=== PATIENT | female | born 1955 | race Caucasian/White ===

== ENCOUNTER 2016-10-06 10:36 | Emergency (ER) | payer BC ==
--- NOTE | 2016-10-06 13:25 | ERNOTE ---
Upper Extremity HPI - Narrative Date of Service: 10/06/16 - General Extremities Pain Location: shoulder: right Time Seen by Provider: 10/06/16 11:12 Source: patient Exam Limitations: no limitations - Immun/Allergies/Home Medications Immunizations: IMMUNIZATION HX Immunizations Up to Date Yes History of Influenza Vaccine No Hx Pneumococcal Vaccination No Allergies/Adverse Reactions: Allergies Allergy/AdvReac Type Severity Reaction Status Date / Time No Known Drug Allergies Allergy Verified 10/06/16 11:08 Home Medications: HOME MEDICATIONS HYDROcodone/ACETAMINOPHEN [[place] 5-325] 1 each PO Q8H PRN #12 tablet 10/06/16 [ Last Taken Unknown] - History of Present Illness Narrative: Patient had a trip and fall just PLANNING OFFICIAL. She landed on her right shoulder and has right shoulder pain. No other injuries. She denies head injury, nock pain, CP or SOB. Pain right shoulder and proximal humerus. No focal weakness but she states her fingers tingle. Pain worse with movement and palpation. Has not seen anyone else for this. Occurred: just prior to arrival Location of Incident: home Method of Injury: Reports: fell Reason for Fall: Reports: tripped Loss of Consciousness: Reports: no loss of consciousness Modifying Factors - (Improves): Reports: rest Modifying Factors - (Worsens): Reports: movement Associated Symptoms: Reports: tingling Prior Treament: Denies: recently seen Review of Systems - Review of Systems Constitutional: Absent: fever Respiratory: Absent: shortness of breath Cardiology: Absent: chest pain Gastrointestinal/Abdominal: Absent: abdominal pain Genitourinary: Absent: frequency Musculoskeletal: Present: See HPI Skin: Present: other - no laceration - Patient's Past Medical History Patient History - Medical: Arthritis Patient History - Cardiac/Respiratory: Hyperlipidemia Patient History - Cancer: No Hx of Cancer Patient History - Surgical Procedures: Appendectomy, Cholecystectomy, Other Patient History - Other: None LMP (females 10-50): Menopausal - Social History Living Situations: home Abuse History: No History of abuse Psych History: No pertinent hx Smoking Status: Former smoker Alcohol Use: occasionally Drug Use: none - Immunizations Immunizations Up to Date: Yes Hx Pneumococcal Vaccination: No History of Influenza Vaccine: No Physical Exam - Physical Exam General Appearance: Present: alert, no apparent distress Eye Exam: Normal inspection: bilateral, PERRL: bilateral Ears, Nose, Throat: Present: normal ENT inspection Neck: Present: normal inspection, nontender. Absent: tender posterior midline Respiratory: Present: no respiratory distress, normal breath sounds, no accessory muscle use, lungs clear Cardiovascular/Chest: Present: regular rate, rhythm, normal peripheral pulses, other - strong radial pulse Gastrointestinal/Abdominal: Present: normal bowel sounds, nontender, soft Back Exam: Present: normal range of motion, no vertebral tenderness Extremity Exam: Present: other - TEnderness right shoulder and proximal humerus. No dislocation. No compartment syndrome. No other extremity tenderness noted. Neurological Exam: Present: alert, normal mood/affect, other - senssation intact to LT. No clear motor deficits but pain limits exam. No clear motor or sensory deficits. No vascular deficits. Skin Exam: Present: other - no laceration ED Progress - Vital Signs Patient's Vital Signs:: I have reviewed the patient's vital signs. Vital Signs: Vital Signs 10/06/16 10/06/16 10:51 12:10 Temperature 36.5 C Pulse Rate 68 95 Respiratory 16 12 Rate Blood Pressure 141/77 143/69 O2 Sat by Pulse 99 97 Oximetry - X-Ray X-Ray #1 X-Ray: humerus Interpretation: Reviewed by me X-ray Comments: I reviewed radiology report X-Ray #2 X-Ray: shoulder Interpretation: Reviewed by me X-ray Comments: I reviewed radiology report - Progress/Reassessment Chief Complaint: Shoulder Injury/Pain Progress Note-Subjective: 10/06/16 13:24 I discussed the case with Dr Mark, documentum consultant for ortho. He recommends sling and office f/u. Discussed with patient who is agreeable. i discussed warning signs and reasons to return as well as the need for close f/u. Departure Clinical Impression: Fracture of humerus greater tuberosity - Departure Disposition: Home self-care Condition: Stable Instructions: Humerus Fracture Treated With Immobilization Additional Instructions: Rest. Fluids. i spoke with Dr Mark, please call Saturday for an appointment for follow-up. Orthopedics has recommended a sling for now. Ice. Return here for increased pain, numbness, tingling, weakness or if your condition worsens or changes in any way. No driving with pain medications. Referrals: Mellisa Meier MD [Primary Care Provider] - Prescriptions: HYDROcodone/ACETAMINOPHEN [[place] 5-325] 1 each PO Q8H PRN #12 tablet PRN Reason: Pain
[2016-10-06 13:28] VITALS: BP 138/87
== END 2016-10-06 13:29 | disposition home or self-care (01) ==
LOC: ER 10:36
DX: S42.251A Displaced fracture of greater tuberosity of right humerus, initial encounter for closed fracture (principal); Z87.891 Personal history of nicotine dependence; W01.0XXA Fall on same level from slipping, tripping and stumbling without subsequent striking against object, initial encounter; Y92.009 Unspecified place in unspecified non-institutional (private) residence as the place of occurrence of the external cause

== ENCOUNTER 2016-11-25 12:59 | Emergency (ER) | payer BC ==
[2016-11-25] MEDS ORDERED: KETOROLAC TROMETHAMINE 60 MG/2 ML VIAL IM ONE ×2 (13:29→13:30)
--- NOTE | 2016-11-25 13:35 | ERNOTE ---
Upper Extremity HPI - Narrative Date of Service: 11/25/16 - General Extremities Pain Location: elbow: right, wrist: bilateral, hand: bilateral Time Seen by Provider: 11/25/16 13:23 Source: patient Exam Limitations: no limitations - Immun/Allergies/Home Medications Immunizations: IMMUNIZATION HX Immunizations Up to Date No: unknown History of Influenza Vaccine No Hx Pneumococcal Vaccination No Allergies/Adverse Reactions: Allergies Allergy/AdvReac Type Severity Reaction Status Date / Time No Known Drug Allergies Allergy Verified 10/06/16 11:08 Home Medications: HOME MEDICATIONS HYDROcodone/ACETAMINOPHEN [[place] 5-325] 1 each PO Q8H PRN #12 tablet 10/06/16 [ Last Taken Unknown] Atorvastatin Calcium [Lipitor] 20 mg PO DAILY 11/25/16 [Last Taken Unknown] Naproxen Sodium [Aleve] 220 mg PO HS 11/25/16 [Last Taken Unknown] Naproxen Sodium [Aleve] 440 mg PO QAM 11/25/16 [Last Taken Unknown] Naproxen [Naprosyn] 500 mg PO BID PRN #60 tab 11/25/16 [Last Taken Unknown] - History of Present Illness Occurred: yesterday Location of Incident: home Severity: mild Method of Injury: Reports: fell Reason for Fall: Reports: tripped Loss of Consciousness: Reports: no loss of consciousness Modifying Factors - (Improves): Reports: pain medication - hydrocodone Modifying Factors - (Worsens): Reports: movement Associated Symptoms: Reports: other - tingling distally Other Injuries: Reports: none. Denies: head Prior Treament: Reports: other - broken R humerus a few months ago Review of Systems - Review of Systems Constitutional: Present: no symptoms reported. Absent: recent illness, fever, chills, weakness, fatigue, malaise EYE: Present: no symptoms reported ENT: Present: no symptoms reported Respiratory: Present: no symptoms reported. Absent: shortness of breath, cough , wheezing Cardiology: Present: no symptoms reported. Absent: chest pain, palpitations, edema Genitourinary: Present: no symptoms reported Musculoskeletal: Present: joint pain - B hands, wrists and R elbow, joint swelling - B wrists and R elbow. Absent: back pain, neck pain Skin: Present: no symptoms reported Neurological: Present: tingling. Absent: headache, dizziness/light-headedness, numbness All Other Systems: All systems neg except as marked - Patient's Past Medical History Patient History - Medical: Arthritis, Kidney stone Patient History - Cardiac/Respiratory: Hyperlipidemia Patient History - Cancer: No Hx of Cancer Patient History - Surgical Procedures: Appendectomy, Cholecystectomy Patient History - Other: None - Family History Mother Family History - Medical: No pertinent hx, Arthritis Family History - Cardiac/Respiratory: No pertinent hx Family History - Cancer: No pertinent family hx Father Family History - Medical: , History Unknown Family History - Cardiac/Respiratory: Hyperlipidemia Family History - Cancer: Brain - Social History Living Situations: spouse Abuse History: No History of abuse Psych History: No pertinent hx Smoking Status: Former smoker Have you smoked in the past 12 months: No Do you dip or chew tobacco: No Patient requests Smoking Cessation Consult: No Initiate information on Smoking Cessation: No Alcohol Use: occasionally Drug Use: none - Immunizations Immunizations Up to Date: No - unknown Hx Pneumococcal Vaccination: No History of Influenza Vaccine: No Physical Exam - Physical Exam General Appearance: Present: wd/wn, alert, no apparent distress Eye Exam: Normal inspection: bilateral, PERRL: bilateral, EOMI: bilateral Neck: Present: normal inspection Respiratory: Present: no respiratory distress, normal breath sounds, no accessory muscle use, chest nontender, lungs clear Cardiovascular/Chest: Present: regular rate, rhythm, no murmur, normal peripheral pulses Back Exam: Present: normal inspection, normal range of motion, no vertebral tenderness Extremity Exam: Present: normal range of motion, bony tenderness - Distal and prox R radial B thumbs distal L radius Neurological Exam: Present: alert, oriented, normal mood/affect, other - burning and tingling with palpation of hands good cap refill and pulses Skin Exam: Present: normal color, warm/dry, other - superficial scratches to B palms no foreign body noted.. Absent: pallor, skin rash ED Progress - Date and Time Seen: Date and Time: 11/25/16 14:11 Pt. with minimal injury and good prognosis so will start on NSAIDs and have follow up with primary provider. - Vital Signs Patient's Vital Signs:: I have reviewed the patient's vital signs. Vital Signs: Vital Signs 11/25/16 13:02 Temperature 37.5 C Pulse Rate 69 Respiratory 18 Rate Blood Pressure 136/73 O2 Sat by Pulse 97 Oximetry - X-Ray X-Ray #1 X-Ray: wrist Interpretation: Interp. by me X-ray Comments: B wrists without obvious ossious abnormalities X-Ray #2 X-Ray: hand - B Interpretation: Interp. by me X-ray Comments: B hands without obvious ossious abnormalities X-Ray #3 X-Ray: elbow Interpretation: Interp. by me X-ray Comments: no obvious ossious abnormality noted - Progress/Reassessment Chief Complaint: Upper Extremity Injury/Problem Progress:: Improved Departure Clinical Impression: Left wrist sprain Qualifiers: Encounter type: initial encounter Qualified Code(s): S63.502A - Unspecified sprain of left wrist, initial encounter Sprain of wrist, right Qualifiers: Encounter type: initial encounter Qualified Code(s): S63.501A - Unspecified sprain of right wrist, initial encounter Radiohumeral (joint) sprain of right elbow, initial encounter Qualifiers: Encounter type: initial encounter Qualified Code(s): S53.411A - Radiohumeral ( joint) sprain of right elbow, initial encounter - Departure Disposition: Home self-care Condition: Good Instructions: Muscle Strain, [id number] Additional Instructions: Please follow up with primary provider in 2-3 days to discuss further imaging possibly needed. Referrals: Mellisa Meier MD [Primary Care Provider] - Prescriptions: Naproxen [Naprosyn] 500 mg PO BID PRN #60 tab PRN Reason: Pain
[2016-11-25 14:23] VITALS: BP 138/72
== END 2016-11-25 14:24 | disposition home or self-care (01) ==
LOC: ER 12:59
DX: S63.502A Unspecified sprain of left wrist, initial encounter (principal); S63.501A Unspecified sprain of right wrist, initial encounter; S53.411A Radiohumeral (joint) sprain of right elbow, initial encounter; E78.5 Hyperlipidemia, unspecified; W01.0XXA Fall on same level from slipping, tripping and stumbling without subsequent striking against object, initial encounter; Y93.9 Activity, unspecified; Y92.009 Unspecified place in unspecified non-institutional (private) residence as the place of occurrence of the external cause

== ENCOUNTER 2016-12-25 07:45 | Inpatient (IN) | payer BC ==
[~2016-12-25 07:45] MED LIST: MORPHINE SULFATE 15 MG TABLET.SA PO PRN; ROPIVACAINE HCL/PF 100 MG, EPINEPHrine 0.2 MG, KETOROLAC TROMETHAMINE 30 MG in NORMAL S... IJ PRN; TRANEXAMIC ACID 1,000 MG in NORMAL SALINE 100 ML IV PRN; ceFAZolin SODIUM 1 GM VIAL IV PRN
[2016-12-25] MEDS: RINGER'S SOLUTION,LACTATED 1,000 ML IV PRN ×2 (08:59→10:15)
[2016-12-25] MEDS ORDERED: RINGER'S SOLUTION,LACTATED 1,000 ML IV ONE ×2 (11:15→13:15)
[2016-12-25] MEDS ORDERED: ONDANSETRON HCL/PF 2 MG/ML VIAL IV PRN (13:12)
[2016-12-25] MEDS ORDERED: MAGNESIUM HYDROXIDE 30 ML UDC PO PRN (13:12)
[2016-12-25] MEDS ORDERED: PROMETHAZINE HCL 5 MG in DEXTROSE 5 % IN WATER 50 ML IV PRN ×2 (13:12)
[2016-12-25] MEDS ORDERED: ACETAMINOPHEN 500 MG TABLET PO PRN (13:12)
[2016-12-25] MEDS ORDERED: diphenhydrAMINE HCL 50 MG/ML VIAL IV PRN (13:12)
[2016-12-25] MEDS ORDERED: oxyCODONE HCL/ACETAMINOPHEN 1 TAB TABLET PO PRN (13:12)
[2016-12-25] MEDS ORDERED: MAG HYDROX/ALUMINUM HYD/SIMETH 30 ML UDC PO PRN (13:12)
[2016-12-25] MEDS ORDERED: HYDROmorphone HCL 1 MG/ML DISP.SYRIN IV PRN (13:12)
--- NOTE | 2016-12-25 13:25 | OR ---
Operative Report - Dictated Report Narrative: Date: 12/25/2016 Preoperative diagnosis: Right Knee degenerative joint disease. Postoperative diagnosis: Right Knee degenerative joint disease. Procedure: Right Total knee arthroplasty. Surgeon: Aftab Vivas M.D. Contact Manager: Nanette Linares PA-C, Leoncio Lyn PA-C Anesthesia: Spinal with regional block and local periarticular joint injection. Complications: None Specimens: Bone for disposal. Estimated blood loss: Minimal. Tourniquet time: 75 Minutes at 300 millimeters of mercury. Retained implants: Depuy Attune size 6 standard lugged cemented posterior stabilized femoral component. Size 4 fixed-bearing cemented tibial platform. 6 by 5 millimeter posterior stabilized cross-linked tibial insert. 35 millimeter medialized patella button. Indications: Jeni Is a 61-year-old healthy female. This patient was followed in my clinic for period of time with significant complaints of right knee pain consistent with arthritic changes. They had failed conservative measures including but not limited to activity modification, passage of time, medications , and other conservative measures. Patient wished to proceed with surgical treatment. The risks, benefits, and alternatives were discussed in clinic. The risks of , blood clots, bleeding, infection, nerve/tendon blood vessel / injury, malposition of components, intraoperative fracture, postoperative limited range of motion, persistent pain, failure of components, and need for additional procedures. Patient wished to proceed consent was obtained after answering all questions. Procedure: After marking the correct extremity on the floor, the patient was taken to the operating room. A timeout was performed. IV antibiotics consisting of 2 g of Ancef were administered prior to the procedure. A regional followed by spinal anesthetic was induced by anesthesia. on the operative table with all bony prominences well-padded. Teran catheter was placed and a bump was placed under the operative side buttock. SCDs and NANETTE hose were utilized on the nonoperative leg. A well-padded tourniquet was applied to the operative thigh. The operative leg was then pre-scrubbed with alcohol prepped and draped in a standard sterile fashion. After exsanguinating the extremity with an Esmarch bandage, the tourniquet was inflated. After marking out the anterior knee for standard incision centered over the patella, the skin was incised and dissected down to the joint retinaculum. The joint retinaculum was marked out as well as the horizontal axis of the patella, and a standard medial parapatellar arthrotomy was then made. The most proximal aspect of the quadriceps tendon and the patella tendon insertion were protected from release. A partial synovectomy was performed as well as a resection of the infrapatellar fat pad. The distal femoral fat pad proximal to the trochlea was also resected using cautery. The soft tissues were elevated off the medial aspect of the proximal tibia using a Chan elevator ensuring that we did not transect the medial collateral ligament. Upon initial evaluation range of motion was approximately 10 degrees to 20 degrees of flexion. There were signs of advanced arthrosis in the medial and patellofemoral joint spaces. There were large marginal osteophytes which were removed with a rongeur. The knee was hyperflexed and the patella was tucked laterally. Protecting the surrounding soft tissues with Homans, an entry drill was placed down the femoral canal using Whitesides line for guidance into the entry point. The intramedullary femoral alignment katherine was utilized in order to cut the distal femur in 5 of valgus resecting 11 millimeters of bone. Next the distal femur was sized to a size 6. A posterior referencing guide was utilized to place the distal femoral cutting block in 3 of external rotation. This was pinned into place. The rotation was confirmed both visually and based on anatomic landmarks. The 4 in 1 cutting jig of the appropriate size was utilized in order to make all bony cuts. Retractors were utilized in order to protect surrounding soft tissues. This cut did not result in any excessive notching. We then cut the box centered over the distal femur. This allowed for resection of the anterior and posterior cruciate ligaments. I then turned my attention to the preparation of the tibia. Using an extra medullary tibial alignment katherine, 3 millimeters of bone was resected off the medial articular surface. This was made perpendicular to the mechanical axis of the joint with the alignment katherine centered over the ankle mortise. The alignment katherine was parallel to the mechanical axis, centered over the medial one third of the tibial tubercle, paralleling the anterior surface of the tibia. We then turned our attention to the remaining meniscus and soft tissues. These were removed while protecting the surrounding ligaments and soft tissues. The marginal osteophytes off the anterior, posterior, medial, lateral aspects of the femur and tibia were removed. The tibia was sized out to a size four. Next the tibia was drilled and punched in an externally rotated position as confirmed with a drop katherine. Next the trial femur and a series of tibial inserts were utilized in order to allow for full extension and maximal flexion. It was found that a 5 millimeter insert gave the best range of motion and stability at multiple flexion points as well as at full extension there was less than 2 mm of gapping both medially and laterally. There was minimal anterior translation with the knee at 90 of flexion and no signs of being able to dislocate the knee. The patella was then prepared. The initial thickness was 21 millimeters. This was reamed down to 14 millimeters parallel to the anterior surface of the patella. It was sized out to a size 35 millimeter medialized patella button. This was then drilled and trialed. Without any medial restraint the patella tracked appropriately and did not sublux or dislocate. At this point, it was felt these were the appropriate sized implants and all trials were removed. The standard periarticular joint injection consisting of ropivacaine, Toradol, and epinephrine were injected into the periarticular joint tissues. The bony surfaces were thoroughly irrigated with a pulsatile- suction saline irrigation device. A bone plug from the prior resected anterior chamfer cut was placed into the drill hole at the distal femur. The bony surfaces were then dried in preparation for placement of the implants. The cement was vacuum mixed per the manufacturers service representative's instructions. The cement was placed on the dry bony surfaces and posterior aspect of the implants. The implants were impacted into place, removing all extruded cement. At this point anesthesia administered tranexamic acid per protocol intravenously. The knee was placed in extension with axial loading with the trial insert while the cement cured. A dilute 0.35% betadyne-saline solution was used to irrigate the knee and allowed to sit in the knee while the cement cured. Once the cement cured, all remaining extruded cement was removed. The knee was placed through a range of motion with the trial insert to ensure appropriate range of motion and stability. Final range of motion was approximately 0 to 130 degrees. The knee was again thoroughly irrigated with pulsatile saline lavage. The final polyethylene insert was then impacted into place ensuring no retained soft tissues. The remaining periarticular joint injection was injected. The knee was then packed with lap sponges which were soaked with dilute betadyne solution and the tourniquet was let down. Pressure was held for approximately 2 minutes and then hemostasis was obtained using electrocautery to coagulate any bleeding vessels. The knee was then placed over a triangle and the arthrotomy was closed with interrupted #1 Vicryl after thoroughly irrigating the joint. The deep and subcutaneous tissues were closed with interrupted 0 and 3-0 Vicryl respectively. Skin was closed with a running subcutaneous 3-0 Monocryl and dressed with a Prineo dressing. 4 x 4's, ABD, Sof-Rol, and a full leg Perez wrap were applied. All sponge, needle, blade, and instrument counts were correct prior to closing the wounds. Postoperative condition: The patient was awoken and transferred to the postanesthesia care unit in stable condition. Plan is to be admitted to the inpatient medical/surgical floor postoperatively for 24 hours of IV antibiotics , physical therapy, occupational therapy, and medical co-management. Patient will be weightbearing as tolerated with range of motion as tolerated. DVT prophylaxis will be with SCDs, NANETTE hose, and pharmacological anticoagulation. Anticipated hospital stay is approximately 2-4 days.
[2016-12-25] MEDS: NORMAL SALINE 1,000 ML IV PRN ×2 (14:22→23:45)
[2016-12-25] MEDS: ceFAZolin SODIUM 2 GM in DEXTROSE 5 % IN WATER 50 ML IV SCH ×4 (14:24→20:38)
--- NOTE | 2016-12-25 14:56 | OR ---
Anesthesia Procedure Note - Anesthesia Procedure Note Date of Service: 12/25/16 Narrative: Vital Signs - Last Taken Temp 36.5 C 12/25/16 13:56 Pulse 64 12/25/16 13:56 Resp 16 12/25/16 13:56 BP 138/71 12/25/16 13:56 Pulse Ox 96 12/25/16 13:56 O2 Oxygen Delivery Method Room Air 12/25/16 14:53 ANESTHESIA PROCEDURE NOTE Date of Procedure: 12/25/2016 Time of procedure: 1020. Performed by: HANNAH Wells CRNA, MSN Integrated Logistics Operations Manager: Gissel Casey RN. Preprocedure diagnosis: Post right knee surgery pain relief. Post procedure diagnosis: Same. Procedure: Right femoral nerve block. Indications: Post right total knee arthroplasty pain relief. Findings: See below. Details of the procedure: The patient was brought to OR #3 and placed in supine position. The patient's 8 femoral area was prepped with DuraPrep and using ultrasound guidance the right femoral artery and nerve was identified and lidocaine 1% was infiltrated to the skin of the intended injection site. Under ultrasound guidance the femoral nerve was approached until a thigh/leg response was identified on nerve stimulator. Once the stimulator response was effective at less than 0.5 mV and greater than 0.3 mV the femoral nerve was surrounded with 30 mL bupivacaine 0.5% with 1-200,000 epinephrine. Please see radiology/ ultrasound report for details and images of the procedure. EBL: 0 Fluids: N/A. Specimen: N/A. Post procedure condition: The patient tolerated the procedure well. No complications were noted. Thank you for this consultation. Layton Jameson CRNA, ARNP, MSN
[2016-12-25] MEDS: SENNOSIDES/DOCUSATE SODIUM 1 TAB TABLET PO SCH (20:37)
[2016-12-26] MEDS: ceFAZolin SODIUM 2 GM in DEXTROSE 5 % IN WATER 50 ML IV SCH ×2 (02:45)
[2016-12-26 06:00] LABS: Hemoglobin 11.5 gm/dL (12.5-16.0); Mean Cell Volume 90.4 fl (78-100); Mean Corpuscular Hemoglobin 31.5 pg (27-31); Mean Corpuscular Hgb Conc 34.8 g/dl (32-36); Mean Platelet Volume 10.1 fl (6.0-9.5); Platelet Count 186 K/mm3 (150-450); Red Blood Count 3.65 M/mm3 (4.2-5.4); White Blood Count 9.7 K/mm3 (4.0-10.5)
[2016-12-26 06:18] LABS: Anion Gap 10.6 mmol/L (6.8-13.8); BUN/Creatinine Ratio 8.6 (9.0-21.6); Calcium * 7.8 mg/dL (7.9-10.9); Carbon Dioxide 28.3 mmol/L (24-32.6); Potassium 3.9 mmol/L (3.4-4.6)
--- NOTE | 2016-12-26 08:02 | PN ---
Subjective - Date and Time Seen Date: 12/26/16 Subjective Narrative: No events overnight. Pain controlled this am. No complaints. Objective - Vitals Vitals: Last Vital Signs Temp 36.8 C 12/25/16 21:00 Pulse 72 12/26/16 03:41 Resp 16 12/26/16 03:41 BP 124/67 12/26/16 03:41 Pulse Ox 95 12/26/16 03:41 - Abnormal Lab Findings Abnormal Lab Findings: Abnormal Lab Results 12/26/16 12/26/16 Range/Units 05:56 05:56 RBC 3.65 L (4.2-5.4) M/mm3 Hgb 11.5 L (12.5-16.0) gm/dL Hct 33.0 L (37.0-47.0) % MCH 31.5 H (27-31) pg MPV 10.1 H (6.0-9.5) fl BUN/Creatinine Ratio 8.6 L (9.0-21.6) Random Glucose 115 H (70-110) mg/dL Calcium 7.8 L (7.9-10.9) mg/dL - Exam Exam Narrative: Gen: A&Ox4, NAD Resp: breathing non-labored MSK: RLE--> dressings c/d/i, 5/5 EHL/FHL/DF/PF, SILT, cap refill brisk Cauti Physician Documentation - Urinary Catheter Management Urethral (Parr) Date of Insertion: 12/25/16 Time of Insertion: 10:40 Assessment/Plan Plan Narrative: 61 yo F s/p R total knee arthroplasty, POD #1. - WBAT - reg diet - oral pain meds - parr out - DVT ppx: lovenox, teds, SCDs - PT/OT - dispo: continue inpatient care
[2016-12-26] MEDS: oxyCODONE HCL/ACETAMINOPHEN 1 TAB TABLET PO PRN (08:20)
[2016-12-26] MEDS: ENOXAPARIN SODIUM 40 MG/0.4 ML SYRG SC SCH (12:10)
[2016-12-26] MEDS: SENNOSIDES/DOCUSATE SODIUM 1 TAB TABLET PO SCH (21:40)
[2016-12-27] MEDS: oxyCODONE HCL/ACETAMINOPHEN 1 TAB TABLET PO PRN ×3 (04:06→15:54)
[2016-12-27 05:42] LABS: Hematocrit 30.8 % (37.0-47.0); Hemoglobin 10.8 gm/dL (12.5-16.0); Mean Cell Volume 90.3 fl (78-100); Mean Corpuscular Hemoglobin 31.7 pg (27-31); Mean Corpuscular Hgb Conc 35.1 g/dl (32-36); Mean Platelet Volume 10.3 fl (6.0-9.5); Platelet Count 179 K/mm3 (150-450); Red Blood Count 3.41 M/mm3 (4.2-5.4); Red Cell Distribution Width 12.1 % (11.5-14.0); White Blood Count 10.7 K/mm3 (4.0-10.5)
[2016-12-27 06:07] LABS: Anion Gap 10.1 mmol/L (6.8-13.8); BUN/Creatinine Ratio 9.5 (9.0-21.6); Calcium * 8.1 mg/dL (7.9-10.9); Carbon Dioxide 28.6 mmol/L (24-32.6); Estimated Creat Clear 75.7; Potassium 3.7 mmol/L (3.4-4.6)
--- NOTE | 2016-12-27 07:40 | PN ---
Subjective - Date and Time Seen Date: 12/27/16 Time: 07:38 Subjective Narrative: No acute overnight events. Pt reports mild thigh pain. Pt has been up and walking to restroom. Otherwise no compliants. Objective - Vitals Vitals: Last Vital Signs Temp 37 C 12/27/16 06:59 Pulse 78 12/27/16 06:59 Resp 18 12/27/16 06:59 BP 156/54 12/27/16 06:59 Pulse Ox 98 12/27/16 06:59 - Abnormal Lab Findings Abnormal Lab Findings: Abnormal Lab Results 12/27/16 12/27/16 Range/Units 05:37 05:37 WBC 10.7 H (4.0-10.5) K/mm3 RBC 3.41 L (4.2-5.4) M/mm3 Hgb 10.8 L (12.5-16.0) gm/dL Hct 30.8 L (37.0-47.0) % MCH 31.7 H (27-31) pg MPV 10.3 H (6.0-9.5) fl Random Glucose 134 H (70-110) mg/dL - Exam Constitutional: Present: Alert, Well developed, No distress Respiratory: Present: no respiratory distress Extremity: Present: other - RLE dressing c/d/i, cap refill brisk, dorsal pedis pulse 2+, 5/5 EHL, FHL, PF, DF Cauti Physician Documentation - Urinary Catheter Management Urethral (Parr) Date of Insertion: 12/25/16 Time of Insertion: 10:40 Date of Removal: 12/26/16 Time of Removal: 08:30 Assessment/Plan Plan Narrative: 61 yo F s/p R total knee arthroplasty, POD #2. - WBAT - reg diet - oral pain meds - parr out - DVT ppx: lovenox, teds, SCDs - PT/OT - dispo: continue inpatient care
[2016-12-27] MEDS: ENOXAPARIN SODIUM 40 MG/0.4 ML SYRG SC SCH (12:01)
[2016-12-27] MEDS ORDERED: ENOXAPARIN SODIUM 40 MG/0.4 ML SYRG SC SCH (14:45)
[2016-12-27 14:59] VITALS: BP 129/57
--- NOTE | 2016-12-31 14:53 | DS ---
(1) Hyperlipemia Problem: Chronic (2) Restless leg syndrome Problem: Chronic (3) Acute blood loss anemia Problem: Acute (4) Status post total left knee replacement Problem: Acute Description of Stay: Pt was admitted s/p R total knee arthroplasty, her hospital stay was uncomplicated, with no acute events. Pt pain was well controlled with oral pain medication. Bandages were c/d/i, with no drainage. Pt was tolerating regular oral diet prior to discharge. Pt has passed PT/OT consult and has been able to ambulate with a walker. Will be discharged home for self care. Procedures Performed: see notes below List Procedures: s/p R total knee arthroplasty Results and Findings: Laboratory Last Values WBC 10.7 K/mm3 (4.0-10.5) H 12/27/16 05:37 RBC 3.41 M/mm3 (4.2-5.4) L 12/27/16 05:37 Hgb 10.8 gm/dL (12.5-16.0) L 12/27/16 05:37 Hct 30.8 % (37.0-47.0) L 12/27/16 05:37 MCV 90.3 fl (78-100) 12/27/16 05:37 MCH 31.7 pg (27-31) H 12/27/16 05:37 MCHC 35.1 g/dl (32-36) 12/27/16 05:37 RDW 12.1 % (11.5-14.0) 12/27/16 05:37 Plt Count 179 K/mm3 (150-450) 12/27/16 05:37 MPV 10.3 fl (6.0-9.5) H 12/27/16 05:37 Sodium 138 mmol/L (132-142) 12/27/16 05:37 Plasma Sodium 139 mmol/L (130-142) 12/27/16 05:37 Potassium 3.7 mmol/L (3.4-4.6) 12/27/16 05:37 Chloride 103 mmol/L (97-106) 12/27/16 05:37 Carbon Dioxide 28.6 mmol/L (24-32.6) 12/27/16 05:37 Anion Gap 10.1 mmol/L (6.8-13.8) 12/27/16 05:37 BUN 7 mg/dL (3-23) 12/27/16 05:37 Creatinine 0.74 mg/dL (0.4-1.4) 12/27/16 05:37 Est GFR (Non-Af Amer) 85 mL/min (60-130) 12/27/16 05:37 BUN/Creatinine Ratio 9.5 (9.0-21.6) 12/27/16 05:37 Random Glucose 134 mg/dL (70-110) H 12/27/16 05:37 Calcium 8.1 mg/dL (7.9-10.9) 12/27/16 05:37 Discharge Disposition: Home self care Disposition: Home self-care Condition: Good Discharge Activity: Activity as tolerated, Weight bearing Discharge Diet: General/regular food [facility] Therapy: Physicial Therapy - Outpatient Referrals: Mellisa Meier MD [Primary Care Provider] - Problem Oriented Discharge Instructions to Patient/Family: Total Knee Replacement, Care After, [id number] Additional Patient Instructions (free text): F/u at 2 weeks in orthopedic outpatient clinic. Prescriptions (Any new or edited meds): Aspirin/Calcium Carbonate/Mag [Aspirin Buffered 325 mg Tab] 325 mg PO QID #42 tablet Enoxaparin Sodium [Lovenox] 40 mg SC Q24H #8 disp.syrin oxyCODONE HCL/ACETAMINOPHEN [Percocet 5-325 mg Tablet] 1 - 2 each PO Q4H #90 tablet Complete Home Medications List: Complete Home Medication List: Atorvastatin Calcium [Lipitor] 20 mg PO DAILY 11/25/16 Naproxen [Naprosyn] 500 mg PO BID PRN #60 tab 11/25/16 Aspirin/Calcium Carbonate/Mag [Aspirin Buffered 325 mg Tab] 325 mg PO QID #42 tablet 12/27/16 Enoxaparin Sodium [Lovenox] 40 mg SC Q24H #8 disp.syrin 12/27/16 oxyCODONE HCL/ACETAMINOPHEN [Percocet 5-325 mg Tablet] 1 - 2 each PO Q4H #90 tablet 12/27/16 Amb Orders for Discharge: PT Evaluation and Treatment Location: Determined By Patient
== END 2016-12-27 18:13 | disposition home or self-care (01) | DRG 470 ==
LOC: MS 07:45
PROVIDERS: ADMIT Orthopaedic Surgery; ATTEND Orthopaedic Surgery
PROC: 0SRC0J9 Replacement of Right Knee Joint with Synthetic Substitute, Cemented, Open Approach (ICD-10-PCS; principal; 2016-12-25 10:15)
DX: M17.11 Unilateral primary osteoarthritis, right knee (principal); D62 Acute posthemorrhagic anemia; E78.5 Hyperlipidemia, unspecified; G25.81 Restless legs syndrome